=== PATIENT | male | born 2000 | race Caucasian/White ===

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

== ENCOUNTER 2021-12-23 19:04 | Emergency (ER) | payer BC, OTHER ==
[2021-12-23] MEDS ORDERED: fentaNYL 50 MCG/ML SDV IVPUSH ONE ×2 (19:14→21:42)
[2021-12-23] MEDS ORDERED: Sodium Chloride 0.9% 1,000 ML IV ONE (19:31)
[2021-12-23 19:45] LABS: CHLORIDE,CL 101 mmol/L (98-107); SODIUM,NA 141 mmol/L (136-145)
[2021-12-23 19:46] LABS: ESTIMATED GFR 99 mL/min (>=60)
[2021-12-23] MEDS ORDERED: Take Home: Acetaminophen/oxyCODONE 325-5 MG, 5 Tab Pack PO ONE (21:53)
[2021-12-23] MEDS ORDERED: Tamsulosin 0.4 MG Cap.ER PO ONE (21:53)
== END 2021-12-23 22:06 | disposition home or self-care (01) ==
LOC: VM.ED 19:04
DX: N13.2 Hydronephrosis with renal and ureteral calculous obstruction (principal)
CPT/HCPCS: 74176; 80053; 81001; 82150; 83690; 85025; 86140; 96361; 96374; 96376; 99283; 99283-25; A9270-GY; J3010; J7030